=== PATIENT | male | born 1995 | race Caucasian/White ===

== ENCOUNTER 2024-10-27 20:06 | Emergency (ER) | payer OTHER ==
[~2024-10-27] VITALS: Ht 180.3 cm; Wt 99.8 kg
[2024-10-27 20:27] VITALS: BP 124/76; TEMP 98
[2024-10-27] MEDS ORDERED: IBUP-1953 PO (21:43)
[2024-10-27] MEDS ORDERED: CEPH-570 PO (21:43)
[2024-10-27 22:37] VITALS: O2SAT 96
== END 2024-10-27 22:39 | disposition home or self-care (01) ==
LOC: ER 20:15
DX: L03.221 Cellulitis of neck (principal)